=== PATIENT | female | born 1985 ===

== ENCOUNTER 2018-09-27 18:04 | Inpatient (IN) ==
[2018-09-27] MEDS ORDERED: ONDANSETRON 4 MG/2 ML VIAL IV PRN (23:36)
[2018-09-27] MEDS: LACTATED RINGERS 1,000 ML IV SCH (23:47)
[2018-09-28] MEDS: MEPERIDINE 50 MG/1 ML VIAL IV PRN ×2 (00:16→03:27)
[2018-09-28] MEDS: LACTATED RINGERS 1,000 ML IV SCH (06:10)
[2018-09-28] MEDS ORDERED: BUTORPHANOL 2 MG/ML VIAL IV PRN (08:39)
[2018-09-28] MEDS ORDERED: ONDANSETRON 4 MG/2 ML VIAL IV PRN (08:39)
[2018-09-28] MEDS ORDERED: MEPERIDINE 50 MG/1 ML VIAL IV PRN (08:39)
[2018-09-28] MEDS ORDERED: NALOXONE 0.4 MG/ML VIAL IV PRN (08:43)
[2018-09-28] MEDS ORDERED: CITRIC ACID/SODIUM CITRATE 30 ML UDCUP PO ONE (08:43)
[2018-09-28] MEDS ORDERED: ePHEDrine 50 MG/ML AMP IV PRN (08:43)
[2018-09-28] MEDS ORDERED: hydrOXYzine HCL 25 MG/1 ML VIAL IM PRN (08:43)
[2018-09-28] MEDS ORDERED: PROMETHAZINE 25 MG/1 ML VIAL IM ONE (08:43)
[2018-09-28] MEDS ORDERED: LACTATED RINGERS 1,000 ML IV ONE (08:43)
[2018-09-28] MEDS ORDERED: diphenhydrAMINE 50 MG/1 ML VIAL IV PRN ×2 (08:43)
[2018-09-28] MEDS ORDERED: FAMOTIDINE 20 MG/2 ML VIAL IV ONE (08:43)
[2018-09-28 08:58] LABS: Basophils % 0.3 % (0.0-0.8); Eosinophils # 0.1 10*3/uL (0.0-0.87); Eosinophils % 1.4 % (0.00-10.9); Hematocrit 31.6 VOL% (35.7-47.0); Hemoglobin 10.2 GM/DL (12.0-16.0); Immature Granulocytes % 0.3 %; Immature Granulocytes Absolute 0.02 #; Lymphocytes # 1.2 10*3/uL (1.4-4.0); Lymphocytes % 17.7 % (21.3-54.2); Mean Corpuscular HGB Conc 32.3 GM/DL (32-36); Mean Corpuscular Hemoglobin 30 PG (27-34); Mean Corpuscular Volume 93.8 FL (87-102); Mean Platelet Volume 10.1 FL (9.6-12.0); Monocytes # 0.5 10*3/uL (0.11-0.8); Monocytes % 7.2 % (1.7-12.7); Neutrophils # 4.8 10*3/uL (1.4-7.4); Neutrophils % 73.1 % (38.7-73.9); Platelet Count 222 T/CUMM (130-400); Red Blood Count 3.37 MC/CUMM (3.8-5.5); Red Cell Distribution Width 14.8 % (9.3-17.3); White Blood Count 6.5 T/CUMM (4-12)
[2018-09-28] MEDS ORDERED: OXYTOCIN/LR 20 UNIT/1,000 ML BAG IV SCH (09:00)
[2018-09-28] MEDS ORDERED: LACTATED RINGERS 1,000 ML IV SCH (09:00)
[2018-09-28] MEDS ORDERED: fentaNYL 2 MCG/ROPIV 0.2% EPID 100 ML EPIDURAL SCH (09:00)
[2018-09-28 09:16] LABS: Albumin 2.6 G/DL (3.4-5.0); Bilirubin,Total 0.4 MG/DL (0.2-1.0); Osmolality,Calculated 271.7 MOS/KG (273-304); Potassium 4.2 MMOL/L (3.5-5.1); Total Protein 6.3 G/DL (6.4-8.3); Uric Acid 5.4 MG/DL (2.6-6.0)
[2018-09-28] MEDS ORDERED: AMPICILLIN INJ 2,000 MG in SODIUM CHLORIDE 0.9% 100 ML IV ONE (09:28)
[2018-09-28 12:19] LABS: Apearance,Urine CLEAR (Clear); Bacteria,Urine Occasional /HPF (Few); Bilirubin,Urine Negative (Negative); Blood, Urine Negative (Negative); Glucose,Urine (UA) Negative (Negative); Ketones,Urine 20 mg/dL (Negative); Mucus,Urine Occasional /LPF (Occasional); Nitrite,Urine Negative (Negative); Protein,Urine Negative; RBC,Urine 5 /HPF (0-4); Squamous Epithelial Cell,Urine Occasional /HPF (0-10); Urine Color Yellow (Yellow); Urine Specific Gravity 1.016 (1.001-1.035); Urine Urobilinogen < 2.0 EU/DL (0.2-1.0); WBC,Urine 1 /HPF (0-6)
[2018-09-28] MEDS ORDERED: AMPICILLIN INJ 1,000 MG in SODIUM CHLORIDE 0.9% 100 ML IV SCH (14:00)
[2018-09-28] MEDS ORDERED: OXYTOCIN/LR 30 UNIT/1,000 ML BAG IV ONE (15:52)
[2018-09-28] MEDS ORDERED: METHYLERGONOVINE 0.2 MG/1 ML AMP ONE (16:40)
[2018-09-28] MEDS ORDERED: miSOPROStol 200 MCG TABLET ONE (16:41)
[2018-09-28] MEDS ORDERED: ACETAMINOPHEN/CODEINE 300-30 MG TABLET PO PRN (18:19)
[2018-09-28 18:38] LABS: Cord Arterial Blood HCO3 16.2 MMOL/L
[2018-09-28] MEDS ORDERED: DIPH/TET/ACEL PERT BOOSTER VACCINE 0.5 ML VIAL IM ONE (19:08)
[2018-09-28] MEDS ORDERED: LANOLIN 50% CREAM 0.3 OZ TUBE TOP PRN (19:08)
[2018-09-28] MEDS ORDERED: ACETAMINOPHEN 325 MG TABLET PO PRN (19:08)
[2018-09-28] MEDS ORDERED: RHO(D) IMMUNE GLOBULIN 300 MCG SYRINGE IM ONE (19:08)
[2018-09-28] MEDS ORDERED: BENZOCAINE 20%/MENTHOL 0.5% SPRAY 56 GM CAN TOP PRN (19:08)
[2018-09-28] MEDS ORDERED: HYDROCORTISONE 2.5% RECTAL CREAM 30 GM TUBE TOP PRN (19:08)
[2018-09-28] MEDS ORDERED: BISACODYL 10 MG SUPP RECTAL PRN (19:08)
[2018-09-28] MEDS ORDERED: WITCH HAZEL PADS 100/JAR TOP PRN (19:08)
[2018-09-28] MEDS ORDERED: MEASLES/MUMPS/RUBELLA VACCINE 0.5 ML VIAL SUBCUT ONE (19:08)
[2018-09-28] MEDS ORDERED: oxyCODONE/ACETAMINOPHEN 5-325 MG TABLET PO PRN ×2 (19:08)
[2018-09-28] MEDS: IBUPROFEN 800 MG TABLET PO PRN (19:16)
[2018-09-29] MEDS: DOCUSATE SODIUM 100 MG CAPSULE PO SCH ×3 (02:14→21:01)
[2018-09-29] MEDS ORDERED: oxyCODONE/ACETAMINOPHEN 5-325 MG TABLET PO PRN (02:15)
[2018-09-29] MEDS: IBUPROFEN 800 MG TABLET PO PRN (02:24)
[2018-09-29 06:20] LABS: Basophils % 0.2 % (0.0-0.8); Eosinophils # 0.1 10*3/uL (0.0-0.87); Eosinophils % 1.4 % (0.00-10.9); Hematocrit 26.1 VOL% (35.7-47.0); Hemoglobin 8.7 GM/DL (12.0-16.0); Immature Granulocytes % 0.6 %; Immature Granulocytes Absolute 0.06 #; Lymphocytes # 1.6 10*3/uL (1.4-4.0); Lymphocytes % 17.2 % (21.3-54.2); Mean Corpuscular HGB Conc 33.3 GM/DL (32-36); Mean Corpuscular Hemoglobin 30 PG (27-34); Mean Corpuscular Volume 91.3 FL (87-102); Mean Platelet Volume 10.1 FL (9.6-12.0); Monocytes # 0.7 10*3/uL (0.11-0.8); Monocytes % 7.2 % (1.7-12.7); Neutrophils # 6.9 10*3/uL (1.4-7.4); Neutrophils % 73.4 % (38.7-73.9); Red Blood Count 2.86 MC/CUMM (3.8-5.5); Red Cell Distribution Width 14.5 % (9.3-17.3); White Blood Count 9.4 T/CUMM (4-12)
[2018-09-29 06:22] LABS: Platelet Count 165 T/CUMM (130-400)
[2018-09-29] MEDS: FERROUS SULFATE 325 MG TABLET PO SCH ×2 (08:50→21:01)
[2018-09-30] MEDS: FERROUS SULFATE 325 MG TABLET PO SCH ×2 (09:48→21:32)
[2018-09-30] MEDS: DOCUSATE SODIUM 100 MG CAPSULE PO SCH ×2 (09:48→21:32)
[2018-10-01 07:35] VITALS: BP 117/63
[2018-10-01] MEDS: DOCUSATE SODIUM 100 MG CAPSULE PO SCH (08:37)
[2018-10-01] MEDS: FERROUS SULFATE 325 MG TABLET PO SCH (08:38)
== END 2018-10-01 12:00 | disposition home or self-care (01) | DRG 807 ==
LOC: N.LDOUT 18:04 → N.LD 18:06 → N.OB 09-28 21:10
PROVIDERS: ADMIT Obstetrics & Gynecology; ATTEND Obstetrics & Gynecology